=== PATIENT | male | born 1980 | race Caucasian/White ===

== ENCOUNTER → 2020-07-14 | Day surgery (SDC) | payer BC ==
[~2020-07-14] MED LIST: FENTANYL CITRATE/PF 100MCG/2 ML INJ ONE; LIDOCAINE HCL 2% LOCAL INJ 5 ML SDV VIAL INJ ONE; MIDAZOLAM HCL 2 MG/2 ML VIAL ONE; PROPOFOL IV EMULSION 10 MG/ML 20 ML VIAL ONE
[2020-07-14 16:00] VITALS: BP 113/86
--- NOTE | 2020-07-14 18:24 | Operative Report ---
DATE OF PROCEDURE: 07/14/2020 SURGEON: Chau Barrios MD REFERRING PHYSICIAN: INDICATIONS FOR EGD: Upper abdominal pain, heartburn. MEDICATIONS: The patient was done under MAC, please see anesthesiologist's note. PROCEDURE IN DETAIL: With the patient in left lateral decubitus position, flexible fiberoptic Olympus gastroscope was introduced into the esophagus under direct visualization without any difficulty. There was some patchy erythema noted in distal esophagus. A minute tongue of velvety red mucosa was noted to extend proximally from the GE junction. Biopsies were obtained to rule out Smith. An approximately 4 mm nodule was noted at the GE junction that was biopsied. The scope was then advanced with ease into the stomach and traversing small sliding hiatal hernia. The mucosa overlying the antrum and the body revealed some patchy erythema and [id number] edema, and biopsies were obtained and sent to stain for H. pylori. Pylorus was of normal contour and shape, was intubated with ease and the scope was advanced all the way to the second portion of the duodenum. Biopsies were obtained from the proximal and second portion as well as that of the duodenal bulb to rule out sprue. There were also some mild patchy inflammatory changes noted in the duodenal bulb. The scope was then withdrawn back into the stomach and retroflexed. Mucosa overlying the fundus and cardia appeared to be within normal limits. The scope was then straightened out, it was subsequently withdrawn. The patient tolerated the procedure well. IMPRESSION: 1. Distal esophagitis. 2. Approximately 4 mm nodule of GE junction, biopsied. 3. Rule out Smith esophagus. 4. Small sliding hiatal hernia. 5. Gastritis, biopsied, biopsies sent to stain for H. pylori. 6. Bulbar duodenitis. 7. Rule out sprue. PLAN: Follow up Histology. Initiate Protonix 40 mg one p.o. q.a.m. a.c. Chau Barrios MD [facility] [place]/MODL /[id number]
== END | disposition home or self-care (01) ==
LOC: OR 11:33
PROVIDERS: ATTEND Internal Medicine Gastroenterology
DX: K21.00 Gastro-esophageal reflux disease with esophagitis, without bleeding (principal); K29.70 Gastritis, unspecified, without bleeding; K29.80 Duodenitis without bleeding; K22.70 Barrett's esophagus without dysplasia; K44.9 Diaphragmatic hernia without obstruction or gangrene; R03.0 Elevated blood-pressure reading, without diagnosis of hypertension; Z01.810 Encounter for preprocedural cardiovascular examination; Z01.812 Encounter for preprocedural laboratory examination; Z20.828 Contact with and (suspected) exposure to other viral communicable diseases; Z68.27 Body mass index [BMI] 27.0-27.9, adult
CPT/HCPCS: 43239; 93005; J2001; J2250; J2704; J3010; U0002